=== PATIENT | female | born 1990 | race African-American/Black ===

== ENCOUNTER 2017-02-07 20:46 | Emergency (ER) | payer OTHER ==
[~2017-02-07 20:46] MED LIST: KETOPROFEN PO; MACROBID 100 M100 MG PO
[2017-02-07] MEDS ORDERED: NO MEDICATIONS (21:01)
== END 2017-02-07 21:31 | disposition home or self-care (01) ==
LOC: SED 20:46
DX: F41.9 Anxiety disorder, unspecified (principal); F17.200 Nicotine dependence, unspecified, uncomplicated
CPT/HCPCS: 99283

== ENCOUNTER 2017-02-12 10:55 | Emergency (ER) | payer OTHER ==
[~2017-02-12 10:55] MED LIST changes: +NO MEDICATIONS
[2017-02-12 11:47] LABS: URINE SOURCE CLEAN CATCH
[2017-02-12 11:50] LABS: MICRO INDICATED? NO; URINE APPEARANCE CLEAR; URINE BILIRUBIN NEG (NEG); URINE BLOOD NEG (NEG); URINE COLOR YELLOW; URINE GLUCOSE NEG (NORM); URINE KETONE NEG (NEG); URINE LEUKOCYTE ESTERASE NEG (NEG); URINE NITRATE NEG (NEG); URINE PROTEIN NEG (NEG); URINE SPECIFIC GRAVITY 1.015 (1.003-1.035); URINE UROBILINOGEN 0.2 MG/DL (NORM)
[2017-02-12 12:00] LABS: AMPHETAMINE NEG (NEG); BARBITURATES NEG (NEG); BENZODIAZEPINES NEG (NEG); COCAINE NEG (NEG); MARIJUANA NEG (NEG); OPIATES NEG (NEG); TRICYCLIC ANTIDEPRESSANTS NEG (NEG); U METHADONE NEG (NEG)
== END 2017-02-12 12:22 | disposition home or self-care (01) ==
LOC: SED 10:55
PROVIDERS: Emergency Medicine
DX: F41.9 Anxiety disorder, unspecified (principal)
CPT/HCPCS: 80307; 81003; 99283

== ENCOUNTER 2017-05-22 08:11 | Emergency (ER) | payer OTHER ==
--- NOTE | ~2017-05-22 | CR72 ---
[facility]. [facility] A Service of [facility] & [facility] RADIOLOGY TEXT RESULTS PATIENT: JANELL FERNANDEZ LOCATION: SED : 86 UNIT #: [id number] AGE: [address]: Alicia Benites MD SEX: F ORDER DR: [id number] [address] [address] [id number] E MR#: [id number] Acc #: [id number] NAME: JANELL FERNANDEZ : 1990 SEX: F STUDY DATE/TIME: 05/22/2017 8:24 UNIT: SED ROOM: STUDY DESCRIPTION: CR Chest Single View Portable Attending Physician: Alicia Benites M.D. Ordering Physician: Alicia Benites M.D. Primary Care Physician: [facility] MEDICAL IMAGING REPORT This report is preliminary unless electronic signature is present. EXAM Portable chest, 05/22/2017. HISTORY Cough, wheezing and shortness of breath beginning last night. Smoking history for 5 years. FINDINGS A single AP portable view of the chest shows both lungs to be clear. The heart is normal in size. The mediastinal contour is normal. No significant bone abnormalities are seen. IMPRESSION Normal portable chest. Dictated by... Manpreet Daniel M.D. THIS IS AN ELECTRONICALLY VERIFIED REPORT Manpreet Daniel M.D. at 05/23/2017 6:32 AM TORRES/shilpa TD: 05/22/2017 22:07 JOB #: [id number] MEDICAL IMAGING REPORT Page 1 of 1
[2017-05-22] MEDS ORDERED: VISTARIL (08:20)
== END 2017-05-22 09:45 | disposition home or self-care (01) ==
LOC: SED 08:11
DX: J20.9 Acute bronchitis, unspecified (principal); F41.9 Anxiety disorder, unspecified; F17.200 Nicotine dependence, unspecified, uncomplicated
CPT/HCPCS: 71010; 94640; 99285